=== PATIENT | female | born 1975 | race Caucasian/White ===

== ENCOUNTER 2020-05-17 01:06 | Outpatient (CLI) | payer OTHER, SELFPAY ==
[2020-05-17 17:34] LABS: SARS-CoV-2 RNA PCR Negative
== END 2020-05-17 01:07 | disposition home or self-care (01) ==
LOC: ANHCOVIDDT 01:06
PROVIDERS: Visit Provider Orthopaedic Surgery
DX: Z01.818 Encounter for other preprocedural examination (principal); Z11.59 Encounter for screening for other viral diseases
CPT/HCPCS: 87635; C9803; U0003

== ENCOUNTER 2020-05-19 01:27 | Day surgery (SDC) | payer OTHER, SELFPAY ==
[2020-05-09 11:21] VITALS: BMI 26.4
[2020-05-19] VITALS (9 sets, daily range): BP systolic 102–134; BP diastolic 65–92; PULSE 53–81; RESP 12–20; TEMP 36.5; O2SAT 89–98
[2020-05-19] MEDS: LACTATED RINGERS 1,000 ML 30 ML IV CONT ×2 (06:20→08:36)
[2020-05-19] MEDS: CELECOXIB 200 MG CAPSULE PO (06:50)
--- NOTE | 2020-05-19 06:50 | P.PNAN_ITS ---
Anes - Initial Pre Proc Eval Procedure: Operation Date: 05/19/20 07:30 Proposed Procedures p Left Knee Arthroscopy, Proceed As Indicated - Mike Pichardo MD Date/Time: 05/19/20 06:50 Surgeon: Mike Pichardo MD Pre Op Diagnosis: Left Medial Meniscus Tear Patient Data Age: 44 Gender: F Height: 1.57 m Weight: 67.1 kg Allergies Allergy/AdvReac Type Severity Reaction Status Date / Time aspirin Allergy Unknown RASH, Verified 05/19/20 06:02 VOMITING codeine Allergy Unknown Itching Verified 05/19/20 06:02 morphine AdvReac Unknown Nausea and Verified 05/19/20 06:02 Vomiting penicillin G AdvReac Unknown Vomiting Verified 05/19/20 06:02 Home Medications Medication Instructions Recorded Confirmed Type ibuprofen 800 mg tablet 800 mg PO TID PRN #14 tablet 10/06/19 05/19/20 Rx metoprolol succinate 25 mg PO BID 05/09/20 05/19/20 History Patient hx anesthesia problems: none Family hx anesthesia problems: none [facility] Past Medical History Medical History (Updated 05/19/20 @ 06:53 by Marcos Johnson DO) Left knee injury PVC (premature ventricular contraction) Surgical History Surgical History (Updated 05/18/20 @ 08:39 by Marcos Johnson DO) History of breast augmentation History of hysterectomy History of left knee surgery History of mastectomy History of right knee surgery Social History Social History (Updated 05/19/20 @ 06:52 by Marcos Johnson DO) Smoking packs per day: 0.5 Smoking cigarettes per day: 10.0 Years smoked: 15 Smoking pack-years: 7.50 Smoking status: Smoker, status unknown Second hand tobacco smoke exposure: No Smoking end date: 11/24/12 Alcohol intake: never Anes - Eval Final PreProcedure Day of Procedure 05/19/20 06:50 Patient weight: overweight Heart: regular rate and rhythm Lungs: clear to auscultation and normal air movement Airway: Mallampati scale class II Neurological: alert and oriented Last oral intake: >/= 8 hours ASA classification: II Emergent: no Anesthetic plan: proceed Anesthesia type and monitoring: general LMA and standard monitoring Informed Consent: The patient's anesthetic plan and its attendant risks and benefits were discussed with the patient/family/POA. Questions were solicited and answers provided to the satisfaction of the patient/family/POA.
--- NOTE | 2020-05-19 07:31 | WPDHPUPDATE1 ---
History and Physical Update Update Date/Time: 05/19/20 07:31 History and Physical has been reviewed, including an updated exam of the patient. There are NO changes in the patient's condition. Risks, benefits, and alternatives have been discussed and questions answered. Patient agrees to proceed with procedure.
[2020-05-19] MEDS: ceFAZolin 2 GM/D5W 50 ML 2 GM/50 ML BAG IVPB (07:37)
--- NOTE | 2020-05-19 08:36 | PM.OP ---
Procedure Note - Brief Procedure Note - Brief Date of procedure: 05/19/20 Pre-op diagnosis: Left Medial Meniscus Tear Post-op diagnosis: same Procedure performed: LEFT KNEE SCOPE Anesthesia: GLMA Surgeon: Mike Pichardo MD Estimated blood loss (mL): 5 Complications: No immediate complications Condition: stable Disposition: PACU
--- NOTE | 2020-05-19 12:32 | OP_ITS ---
DATE OF PROCEDURE: 05/19/2020 PREOPERATIVE DIAGNOSIS: Left knee medial meniscus tear and chondromalacia. POSTOPERATIVE DIAGNOSIS: Left knee medial meniscus tear and chondromalacia. PROCEDURE: Left knee arthroscopy with partial medial meniscectomy and major synovectomy. ANESTHESIA: General. COMPLICATIONS: None. INDICATIONS: This is a 44-year-old female with a history of severe chondromalacia of the patella and new in recurrent medial-sided knee pain. She was diagnosed with a medial meniscus tear. She was unable to control her pain with nonoperative measures. She was indicated for left knee arthroscopy. DESCRIPTION OF PROCEDURE: The patient was taken to the operating room in stable condition and placed in the supine position. General anesthesia was induced and then, the left lower extremity was prepped and draped sterilely from the toes to the thighs. Inferolateral portal was used for the camera. The camera was introduced. There was grade 3 chondromalacia to the patella. The trochlea had no chondromalacia. The Hoffa synovium had significant amount of synovitis. The medial compartment was entered. There was a small complex tear in between the posterior horn and the anterior horn of the medial meniscus. There was a significant amount of synovitis that was encroaching and impinging on the medial joint surface with flexion and extension. The medial portal was established. The medial meniscus tear was resected to a smooth base and then, a synovectomy was performed in that region. Next, the ACL was identified and was intact. Lateral compartment was entered and there was some mild chondromalacia on the lateral plateau that underwent chondroplasty with a shaver. There was no tear to the lateral meniscus. Next, the patella underwent chondroplasty. Hoffa synovium underwent synovectomy and there was good tracking of the patella. The knee joint was irrigated thoroughly. The instrumentation was removed. The wounds were approximated with 4-0 nylon suture. Sterile dressing was applied. D I MT: [place]
== END 2020-05-19 11:19 | disposition home or self-care (01) ==
PROVIDERS: Visit Provider Orthopaedic Surgery
PROC: (CPT 29870; principal; 2020-05-19 07:30)
DX: S83.232A Complex tear of medial meniscus, current injury, left knee, initial encounter (principal); X58.XXXA Exposure to other specified factors, initial encounter; M22.42 Chondromalacia patellae, left knee; Z87.891 Personal history of nicotine dependence
CPT/HCPCS: 29881; 29876; A9270; J0690; J1100; J2250; J2405; J2704; J3010; J7120